=== PATIENT | female | born 2000 | race African-American/Black ===

== ENCOUNTER 2021-03-11 12:01 | Emergency (ER) | payer OTHER ==
[~2021-03-11] VITALS: Ht 162.6 cm; Wt 59.0 kg
[2021-03-11 12:19] VITALS: BP 111/67
[2021-03-11 13:14] LABS: CHLORIDE 107 mEq/L (98-107)
[2021-03-11 13:17] LABS: CLARITY URINE CLOUDY (CLEAR); COLOR URINE YELLOW (YELLOW); KETONES URINE NEGATIVE (NEGATIVE); LEUKOCYTE ESTERASE URINE 3+ (NEGATIVE); NITRITE URINE NEGATIVE (NEGATIVE); OCCULT BLOOD URINE NEGATIVE (NEGATIVE); PROTEIN URINE NEGATIVE (NEGATIVE); SPECIFIC GRAVITY URINE 1.013 (1.005-1.030)
[2021-03-11 13:23] LABS: BASOPHILS % 1.1 % (0.0-2.0); EOSINOPHILS % 3.5 % (0.0-5.0); HEMATOCRIT. 40.2 % (36.0-48.0); MEAN CORPUSCULAR HEMOGLOBIN 28.2 pg (28.0-32.0); MEAN CORPUSCULAR VOLUME 87.5 fL (81.0-99.0); MEAN PLATELET VOLUME 10.2 fl (7.4-10.4); MONOCYTES % 10.3 % (2.0-8.0); NEUTROPHILS % 47.1 % (40.0-76.0); PLATELET 241 x1000/uL (130-400); RED BLOOD CELL COUNT 4.59 mill/uL (4.2-5.4); RED CELL DISTRIBUTION WIDTH 13.6 % (11.6-14.6)
[2021-03-11 13:25] LABS: B-HCG QUANTITATIVE < 1 mIU/mL (<3)
[2021-03-11 13:31] LABS: HCG SCREEN NEGATIVE
[2021-03-11] MEDS ORDERED: CEPHALEXIN 250MG CAPSULE PO NR (14:30)
[2021-03-11] MEDS ORDERED: CEPH500C2 MT (15:11)
== END 2021-03-11 15:43 | disposition home or self-care (01) ==
LOC: ER 12:01
DX: N39.0 Urinary tract infection, site not specified (principal)
CPT/HCPCS: 36415; 76830; 76856; 80053; 81003; 81025; 84702; 84703; 85025; 99284

== ENCOUNTER 2021-06-17 14:13 | Emergency (ER) | payer OTHER ==
[~2021-06-17] VITALS: Ht 162.6 cm; Wt 60.0 kg
[~2021-06-17 14:13] MED LIST: CEPH500C2 MT
[2021-06-17 15:10] VITALS: BP 125/58
[2021-06-17 16:09] LABS: CLARITY URINE CLOUDY (CLEAR); COLOR URINE YELLOW (YELLOW); KETONES URINE TRACE (NEGATIVE); LEUKOCYTE ESTERASE URINE 1+ (NEGATIVE); NITRITE URINE NEGATIVE (NEGATIVE); OCCULT BLOOD URINE NEGATIVE (NEGATIVE); PH URINE 7.5 (4.5-8.0); PROTEIN URINE 1+ (NEGATIVE); SPECIFIC GRAVITY URINE 1.024 (1.005-1.030)
== END 2021-06-17 18:01 | disposition left against medical advice (07) ==
LOC: ER 14:13
DX: O26.891 Other specified pregnancy related conditions, first trimester (principal); N93.9 Abnormal uterine and vaginal bleeding, unspecified; O23.41 Unspecified infection of urinary tract in pregnancy, first trimester; N39.0 Urinary tract infection, site not specified; Z3A.01 Less than 8 weeks gestation of pregnancy
CPT/HCPCS: 76801; 81003; 81025; 99284

== ENCOUNTER 2021-07-01 21:38 | Emergency (ER) | payer OTHER ==
[~2021-07-01] VITALS: Ht 160 cm; Wt 62.1 kg
[2021-07-01 23:51] LABS: EOSINOPHILS % 6.7 % (0.0-5.0); HEMATOCRIT. 33.5 % (36.0-48.0); HEMOGLOBIN. 11.1 g/dL (12.0-16.0); LYMPHOCYTES % 30.6 % (20.0-50.0); MEAN CORPUSCULAR HEMOGLOBIN 29.2 pg (28.0-32.0); MEAN CORPUSCULAR VOLUME 88.3 fL (81.0-99.0); MEAN PLATELET VOLUME 9.2 fl (7.4-10.4); MONOCYTES % 7.5 % (2.0-8.0); NEUTROPHILS % 54.2 % (40.0-76.0); PLATELET 208 x1000/uL (130-400); RED CELL DISTRIBUTION WIDTH 14.1 % (11.6-14.6)
[2021-07-01 23:57] LABS: CHLORIDE 106 mEq/L (98-107)
[2021-07-02 00:22] LABS: B-HCG QUANTITATIVE 50260 mIU/mL (<3)
[2021-07-02 02:00] VITALS: BP 119/64
== END 2021-07-02 02:15 | disposition home or self-care (01) ==
LOC: ER 21:38
DX: O26.891 Other specified pregnancy related conditions, first trimester (principal); R10.9 Unspecified abdominal pain; Z3A.01 Less than 8 weeks gestation of pregnancy
CPT/HCPCS: 36415; 76801; 80053; 84702; 85025; 86850; 86900; 99284